=== PATIENT | male | born 1930 | race Caucasian/White ===

== ENCOUNTER → 2017-12-14 | Emergency (ER) | payer MEDICARE, OTHER ==
[~2017-12-14] VITALS: Ht 177.8 cm; Wt 88.0 kg
[~2017-12-14] MED LIST: ALBU8.5H8 INH; FLUT16SP26 BOTHNARES; GUAI600T45 PO; ISOS1POW MC; LISI10TA4 PO; NIT10P TD; XAL0.005OS OP; ZOC40T PO
[2017-12-14 08:43] LABS: BASOPHILS % (AUTO) 0.5 % (0-1); EOSINOPHILS # (AUTO) 0.2 X10'3 (0-0.9); EOSINOPHILS % (AUTO) 3.3 % (0-6); HEMATOCRIT 37.5 % (42.0-52.0); LYMPHOCYTES # (AUTO) 0.9 X10'3 (1.1-4.8); LYMPHOCYTES % (AUTO) 17.2 % (21-51); MEAN CORPUSCULAR HEMOGLOBIN 31.1 PG (27.0-31.0); MEAN CORPUSCULAR HGB CONC 34.7 % (33.0-36.5); MEAN CORPUSCULAR VOLUME 89.5 FL (78-98); MEAN PLATELET VOLUME 6.7 FL (7.4-10.4); MONOCYTES # (AUTO) 0.2 X10'3 (0-0.9); MONOCYTES % (AUTO) 4.8 % (2-12); NEUTROPHILS # (AUTO) 3.8 X10'3 (1.8-7.7); NEUTROPHILS % (AUTO) 74.2 % (42-75); PLATELET COUNT 132 X10'3 (140-440); RED BLOOD COUNT 4.19 X10'6 (4.70-6.10); RED CELL DISTRIBUTION WIDTH 14.6 % (11.5-14.5); WHITE BLOOD COUNT 5.1 X10'3 (4.5-11.0)
[2017-12-14 08:47] LABS: CLARITY,URINE CLEAR (Clear); COLOR,URINE DARK YELLOW (Yellow); GLUCOSE, URINE NEGATIVE (Neg); KETONES,URINE NEGATIVE (Neg); LEUKOCYTE ESTERASE ,URINE NEGATIVE (Neg); NITRITES, URINE NEGATIVE (Neg); OCCULT BLOOD,URINE NEGATIVE (Neg); PH,URINE 5.5 (4.8-8.0); PROTEIN,URINE NEGATIVE (Neg); UA COLLECTION TYPE CLN CATCH MIDSTREAM
[2017-12-14 08:52] LABS: PROTHROMBIN TIME 10.4 SECONDS (9.0-12.0)
[2017-12-14 08:58] LABS: ALANINE AMINOTRANSFERASE 21 U/L (12-78); ALBUMIN 3.4 G/DL (3.4-5.0); ALBUMIN/GLOBULIN RATIO 1.1 (1.1-1.5); ALKALINE PHOSPHATASE 89 IU/L (46-116); ANION GAP 5 (8-16); ASPARTATE AMINO TRANSFERASE 16 U/L (10-37); BILIRUBIN,TOTAL 0.9 MG/DL (0.1-1.0); BLOOD UREA NITROGEN 19 MG/DL (7-18); BUN/CREATININE RATIO 14.4 (5.4-32.0); CALCIUM 8.8 MG/DL (8.5-10.1); CHLORIDE 102 MMOL/L (99-107); CREATININE 1.32 MG/DL (0.60-1.10); GLUCOSE 230 MG/DL (70-104); LIPASE 69 U/L (73-393); POTASSIUM 4.3 MMOL/L (3.5-5.1); SODIUM 136 MMOL/L (135-145); TOTAL PROTEIN 6.4 G/DL (6.4-8.2); eGFR 52 ML/MIN
[2017-12-14 10:19] VITALS: BP 153/84
== END | disposition home or self-care (01) ==
LOC: ER 08:18
DX: R10.9 Unspecified abdominal pain (principal); E78.00 Pure hypercholesterolemia, unspecified; I10 Essential (primary) hypertension; E11.9 Type 2 diabetes mellitus without complications; G89.29 Other chronic pain; Z88.0 Allergy status to penicillin; Z79.899 Other long term (current) drug therapy
CPT/HCPCS: 36415; 80053; 81003; 83690; 85025; 85610; 99284

== ENCOUNTER 2020-03-28 10:02 | Observation (INO) | payer MEDICARE, OTHER ==
[~2020-03-28] VITALS: Ht 180.3 cm; Wt 85.0 kg
[~2020-03-28 10:02] MED LIST changes: -NIT10P TD; +NITR1PAT68 TD; +XAL0.005OS EACHEYE; -XAL0.005OS OP
--- NOTE | 2020-03-28 10:24 | NUR ---
Spoke with Dr José about pt symptoms, CP protocol ordered at this time.
[2020-03-28 10:53] LABS: BASOPHILS % (AUTO) 0.4 % (0-1); EOSINOPHILS # (AUTO) 0.2 X10'3 (0-0.9); EOSINOPHILS % (AUTO) 4.1 % (0-6); HEMATOCRIT 35.7 % (42.0-52.0); HEMOGLOBIN 11.9 g/dl (14.0-17.9); LYMPHOCYTES % (AUTO) 24.2 % (21-51); MEAN CORPUSCULAR HEMOGLOBIN 29.3 PG (27.0-31.0); MEAN CORPUSCULAR HGB CONC 33.3 g/dL (33.0-36.5); MEAN CORPUSCULAR VOLUME 88.1 FL (78-98); MEAN PLATELET VOLUME 6.8 FL (7.4-10.4); MONOCYTES # (AUTO) 0.4 X10'3 (0-0.9); MONOCYTES % (AUTO) 9.2 % (2-12); NEUTROPHILS # (AUTO) 2.6 X10'3 (1.8-7.7); NEUTROPHILS % (AUTO) 62.1 % (42-75); PLATELET COUNT 167 X10'3 (140-440); RED BLOOD COUNT 4.05 X10'6 (4.70-6.10); RED CELL DISTRIBUTION WIDTH 14.7 % (11.5-14.5); WHITE BLOOD COUNT 4.2 X10'3 (4.5-11.0)
[2020-03-28] MEDS ORDERED: aspirin 325mg tablet PO ONE (11:15)
[2020-03-28 11:46] LABS: ALANINE AMINOTRANSFERASE 22 U/L (12-78); ALBUMIN 3.5 G/DL (3.4-5.0); ALBUMIN/GLOBULIN RATIO 1.1 (1.1-1.5); ALKALINE PHOSPHATASE 78 IU/L (46-116); ANION GAP 10 (8-16); ASPARTATE AMINO TRANSFERASE 19 U/L (10-37); BILIRUBIN,TOTAL 0.5 MG/DL (0.1-1.0); BLOOD UREA NITROGEN 22 MG/DL (7-18); CALCIUM 9.1 MG/DL (8.5-10.1); CHLORIDE 103 MMOL/L (99-107); CREATININE 1.16 MG/DL (0.60-1.10); GLUCOSE 137 MG/DL (70-104); SODIUM 140 MMOL/L (135-145); TOTAL CARBON DIOXIDE 27.3 MMOL/L (24-32); TOTAL PROTEIN 6.8 G/DL (6.4-8.2); eGFR 59 ML/MIN
[2020-03-28] MEDS ORDERED: enoxaparin 100mg/ml syringe SUBCUT ONE (13:25)
[2020-03-28] MEDS ORDERED: ASPI-611 PO (13:33)
[2020-03-28] MEDS ORDERED: OMEG100037 PO (13:34)
[2020-03-28] MEDS ORDERED: MULT-1085 PO (13:35)
[2020-03-28] MEDS ORDERED: acetaminophen 325mg tablet PO PRN (13:45)
[2020-03-28] MEDS ORDERED: magnesium Cl slow-release 64mg tablet PO PRN (13:45)
[2020-03-28] MEDS ORDERED: magnesium 4gm in 100ml NS 100 ML IV PRN (13:45)
[2020-03-28] MEDS ORDERED: ondansetron/PF 4mg/2ml inj IV PRN (13:45)
[2020-03-28] MEDS ORDERED: potassium CL 10mEq/100ml bag 100 ML IV PRN ×2 (13:45)
[2020-03-28] MEDS ORDERED: normal saline 1000ml 1,000 ML IV SCH (13:45)
[2020-03-28] MEDS ORDERED: potassium Cl 20 mEq SR tablet PO PRN ×2 (13:45)
[2020-03-28] MEDS ORDERED: magnesium 2GM in 50ml NS 50 ML IV PRN (13:45)
[2020-03-28] MEDS ORDERED: TIMO5DRO36 EACHEYE (14:26)
[2020-03-28] MEDS ORDERED: METF-436 PO (14:27)
[2020-03-28] MEDS ORDERED: LISI-600 PO (14:28)
[2020-03-28] MEDS ORDERED: METO50TA17 PO (14:29)
--- NOTE | 2020-03-28 15:00 | NUR ---
Patient requesting meal tray. swine extension field specialist to cafeteria to retrieve tray for patient.
[2020-03-28] MEDS ORDERED: nitroGLYCERIN 0.4mg SUBLingual tab SL PRN (16:00)
[2020-03-28] MEDS ORDERED: metoprolol tartrate 1mg/ml inj IV PRN (16:00)
[2020-03-28] MEDS ORDERED: aminophylline 250mg/10ml inj. IV PRN (16:00)
--- NOTE | 2020-03-28 16:14 | NUR ---
Pt resting on gurney. Lights dimmed for comfort.
[2020-03-28 18:00] VITALS: BP 213/102
--- NOTE | 2020-03-28 18:26 | NUR ---
Problems reprioritized. Patient report given, questions answered & plan of care reviewed with Jorge RN and Dinorah SANABRIA.
[2020-03-28] MEDS: lisinopril 20mg tablet PO SCH (18:41)
[2020-03-28] MEDS: K and/or MAG REPLACEMENT MC SCH (20:00)
[2020-03-28] MEDS: OMEGA-3/DHA/EPA/FISH OIL 1 EACH CAPSULE.DR PO SCH (20:13)
[2020-03-28] MEDS: metoprolol tartrate 25mg tablet PO SCH (20:13)
[2020-03-28] MEDS: hydrALAZINE 20mg/ml inj. IV SCH (20:14)
[2020-03-28] MEDS ORDERED: latanoprost 0.005% 2.5ml ophthalmic drops EACHEYE SCH (21:00)
[2020-03-28 22:00] VITALS: BP 149/80
[2020-03-28] MEDS: morphine 2 MG/ML inj. syringe IV PRN (22:23)
[2020-03-29] VITALS (14 sets, daily range): BP systolic 149–201; BP diastolic 57–94
--- NOTE | 2020-03-29 00:19 | NUR ---
Patient in room PCU 3018. I have received report from Oksana SANABRIA and had the opportunity to ask questions and assume patient care.
[2020-03-29] MEDS: hydrALAZINE 20mg/ml inj. IV SCH ×2 (01:59→08:00)
[2020-03-29 05:48] LABS: BASOPHILS % (AUTO) 0.5 % (0-1); EOSINOPHILS # (AUTO) 0.1 X10'3 (0-0.9); EOSINOPHILS % (AUTO) 2.9 % (0-6); HEMATOCRIT 33.4 % (42.0-52.0); HEMOGLOBIN 11.4 g/dl (14.0-17.9); LYMPHOCYTES # (AUTO) 0.7 X10'3 (1.1-4.8); LYMPHOCYTES % (AUTO) 17.5 % (21-51); MEAN CORPUSCULAR HEMOGLOBIN 29.5 PG (27.0-31.0); MEAN CORPUSCULAR VOLUME 86.7 FL (78-98); MEAN PLATELET VOLUME 6.9 FL (7.4-10.4); MONOCYTES # (AUTO) 0.3 X10'3 (0-0.9); MONOCYTES % (AUTO) 7.5 % (2-12); NEUTROPHILS % (AUTO) 71.6 % (42-75); PLATELET COUNT 153 X10'3 (140-440); RED BLOOD COUNT 3.85 X10'6 (4.70-6.10); RED CELL DISTRIBUTION WIDTH 15.1 % (11.5-14.5); WHITE BLOOD COUNT 4.1 X10'3 (4.5-11.0)
[2020-03-29] MEDS: morphine 2 MG/ML inj. syringe IV PRN (05:48)
[2020-03-29 06:02] LABS: ALBUMIN 3.1 G/DL (3.4-5.0); ANION GAP 9 (8-16); BLOOD UREA NITROGEN 20 MG/DL (7-18); CALCIUM 9.9 MG/DL (8.5-10.1); CHLORIDE 104 MMOL/L (99-107); CHOL/HDL RATIO 5.1 (0.00-4.99); CHOLESTEROL 204 MG/DL (0-200); GLUCOSE 165 MG/DL (70-104); HDL CHOLESTEROL 40 MG/DL (35-60); LDL CHOLESTEROL 142 MG/DL (50-100); MAGNESIUM 1.7 MG/DL (1.5-2.4); POTASSIUM 3.8 MMOL/L (3.5-5.1); SODIUM 139 MMOL/L (135-145); TOTAL CARBON DIOXIDE 25.6 MMOL/L (24-32); TRIGLYCERIDES 107 MG/DL (20-135); eGFR 71 ML/MIN
--- NOTE | 2020-03-29 06:07 | NUR ---
Problems reprioritized. Patient report given, questions answered & plan of care reviewed with Zee RN.
--- NOTE | 2020-03-29 06:14 | NUR ---
I have reviewed Dinorah SANABRIA charting and I agree.
[2020-03-29] MEDS ORDERED: TIMOLOL MALEATE 0.25% ophth drops EACHEYE SCH (08:00)
[2020-03-29] MEDS: K and/or MAG REPLACEMENT MC SCH (08:00)
[2020-03-29] MEDS ORDERED: aspirin 81mg tablet.DR PO SCH (08:00)
[2020-03-29] MEDS ORDERED: multivitamins, therapeutics tablet PO SCH (08:00)
[2020-03-29] MEDS: regadenoson 0.4mg/5ml syringe IV PRN ×2 (10:17→10:28)
[2020-03-29] MEDS: OMEGA-3/DHA/EPA/FISH OIL 1 EACH CAPSULE.DR PO SCH (11:38)
[2020-03-29] MEDS: metoprolol tartrate 25mg tablet PO SCH (11:38)
[2020-03-29] MEDS: lisinopril 20mg tablet PO SCH (11:39)
--- NOTE | 2020-03-29 14:14 | NUR ---
Pt became confused after [place] scan, saw pt start to dress himself, take IV out, monitor off, and stated "I'm leaving this place, I don't like what they are doing here." The CN and I tried to convince the pt to stay and wait for results of [place] scan and to talk to . VENITA called security and the pt again did not want to stay. Dr Spaulding came and met the pt at the elevators and talked with the CN.
--- NOTE | 2020-03-29 14:32 | NUR ---
Security stated that family member named Flaquita that she would go to pt's house to make sure he got there. Security also stated that Dr Fine passed the pt in the lobby and the Dr stated to the pt "you shouldn't go, you should stay here" and the patient continued out the door. Dr German aware that the pt became confused after the [place] scan and didnt want to stay here at this hospital, pt left AMA.
--- NOTE | 2020-03-29 20:02 | NUR ---
PHONED [place] [employer] SPOKE WITH DISPATCH FOR FOLLOW UP ON PATIENT. POLICE DEPARTMENT STATED THEY DID WELLNESS CHECK ON PATIENT AT 1742, AND PATIENT WAS FINE AT HIS HOME. Addendum: 03/29/20 at 2009 by Natacha Santoro RN Amended: Links added.
== END 2020-03-29 13:15 | disposition still patient (30) ==
LOC: ER 10:03 → INTOOBSV 13:45 → ED HOLD 13:45 → PCU 3S 17:24 → MED 3N 03-29 08:40
PROVIDERS: ADMIT Internal Medicine; ATTEND Internal Medicine
DX: R07.89 Other chest pain (principal); I10 Essential (primary) hypertension; E78.5 Hyperlipidemia, unspecified; E11.9 Type 2 diabetes mellitus without complications; E78.00 Pure hypercholesterolemia, unspecified; Z79.82 Long term (current) use of aspirin; Z79.899 Other long term (current) drug therapy; Z88.0 Allergy status to penicillin
CPT/HCPCS: 36415; 71045; 78452; 80048; 80053; 80061; 82948; 83036; 83735; 83880; 84484; 85025; 93005; 93017; 93306; 93308; 96361; 96372; 96374; 96375; 96376; 99285; A9500; G0378; J0280; J0360; J2270; J2785; J7030; J1650

== ENCOUNTER 2020-05-21 14:14 | Emergency (ER) | payer MEDICARE, OTHER ==
[~2020-05-21] VITALS: Ht 177.8 cm; Wt 77.3 kg
[~2020-05-21 14:14] MED LIST changes: -ALBU8.5H8 INH; +ASPI-611 PO; -FLUT16SP26 BOTHNARES; -GUAI600T45 PO; -ISOS1POW MC; +LISI-600 PO; -LISI10TA4 PO; +METF-436 PO; +METO50TA17 PO; +MULT-1085 PO; -NITR1PAT68 TD; +OMEG100037 PO; +TIMO5DRO36 EACHEYE; -ZOC40T PO
[2020-05-21 16:39] VITALS: BP 178/93
== END 2020-05-21 16:57 | disposition home or self-care (01) ==
LOC: ER 14:14
DX: M25.561 Pain in right knee (principal); E78.00 Pure hypercholesterolemia, unspecified; I10 Essential (primary) hypertension; E11.9 Type 2 diabetes mellitus without complications; G89.29 Other chronic pain; Z98.890 Other specified postprocedural states; Z88.0 Allergy status to penicillin; Z79.82 Long term (current) use of aspirin; Z79.84 Long term (current) use of oral hypoglycemic drugs; Z79.899 Other long term (current) drug therapy
CPT/HCPCS: 29530; 73564; 99284

== ENCOUNTER 2020-10-10 14:34 | Emergency (ER) | payer MEDICARE ==
[~2020-10-10] VITALS: Ht 177.8 cm; Wt 81.8 kg
[~2020-10-10 14:34] MED LIST changes: +AMIO200T67 PO; +APIX2.5T PO; +ATOR20TA66 PO; -LISI-600 PO; +LISI20TA28 PO; -TIMO5DRO36 EACHEYE; +TIMO5SOL8 EACHEYE
[2020-10-10] MEDS ORDERED: acetaminophen 325mg tablet PO ONE (15:00)
[2020-10-10 15:05] LABS: BASOPHILS % (AUTO) 0.4 % (0-1); EOSINOPHILS # (AUTO) 0.1 X10'3 (0-0.9); EOSINOPHILS % (AUTO) 1.4 % (0-6); HEMATOCRIT 30.2 % (42.0-52.0); HEMOGLOBIN 10.2 g/dl (14.0-17.9); LYMPHOCYTES # (AUTO) 1.3 X10'3 (1.1-4.8); LYMPHOCYTES % (AUTO) 16.2 % (21-51); MEAN CORPUSCULAR HEMOGLOBIN 29.1 PG (27.0-31.0); MEAN CORPUSCULAR HGB CONC 33.7 g/dL (33.0-36.5); MEAN CORPUSCULAR VOLUME 86.4 FL (78-98); MEAN PLATELET VOLUME 6.5 FL (7.4-10.4); MONOCYTES # (AUTO) 0.6 X10'3 (0-0.9); MONOCYTES % (AUTO) 7.8 % (2-12); NEUTROPHILS # (AUTO) 5.9 X10'3 (1.8-7.7); NEUTROPHILS % (AUTO) 74.2 % (42-75); PLATELET COUNT 218 X10'3 (140-440); RED BLOOD COUNT 3.49 X10'6 (4.70-6.10); WHITE BLOOD COUNT 7.9 X10'3 (4.5-11.0)
[2020-10-10 15:19] LABS: ALANINE AMINOTRANSFERASE 30 U/L (12-78); ALBUMIN/GLOBULIN RATIO 1.1 (1.1-1.5); ALKALINE PHOSPHATASE 66 IU/L (46-116); ANION GAP 5 (8-16); ASPARTATE AMINO TRANSFERASE 21 U/L (10-37); BILIRUBIN,TOTAL 0.7 MG/DL (0.1-1.0); BLOOD UREA NITROGEN 16 MG/DL (7-18); BUN/CREATININE RATIO 13.1 (5.4-32.0); CALCIUM 8.2 MG/DL (8.5-10.1); CHLORIDE 99 MMOL/L (99-107); CREATININE 1.22 MG/DL (0.60-1.10); GLUCOSE 117 MG/DL (70-104); POTASSIUM 4.6 MMOL/L (3.5-5.1); SODIUM 134 MMOL/L (135-145); TOTAL CARBON DIOXIDE 29.9 MMOL/L (24-32); TOTAL PROTEIN 5.7 G/DL (6.4-8.2); eGFR 56 ML/MIN
[2020-10-10 15:24] LABS: TROPONIN I < 0.04 NG/ML (0.0-0.05)
[2020-10-10 15:33] LABS: ACANTHOCYTES 1+; ANISOCYTOSIS 2+; ELLIPTOCYTES 1+; PLATELET ESTIMATE NORMAL
[2020-10-10 15:34] LABS: SCHISTOCYTES 1+; TEAR DROP CELLS 1+
--- NOTE | 2020-10-10 17:13 | NUR ---
talked with pt about making sure he has someone with him while he is walking until he is healed. pt uses a walker at home all the time. talked with nurse Rusty and informed him that the pt's son is here to take him to the patient's home. Rusty went out with the pt to talk to the son about the psychiatric social worker supervisor consult and discuss this part of the pt's care with him. pt's right knee is more swollen than his left. wound on left elbow has a bandage on it with blood on it but it is not actively bleeding. pt able to get up to wheelchair with very minimal assistance. right leg is harder to move.
[2020-10-10 17:16] VITALS: BP 199/95
== END 2020-10-10 17:16 | disposition home or self-care (01) ==
LOC: ER 14:35
DX: S51.012A Laceration without foreign body of left elbow, initial encounter (principal); S00.01XA Abrasion of scalp, initial encounter; I48.91 Unspecified atrial fibrillation; I50.9 Heart failure, unspecified; E78.00 Pure hypercholesterolemia, unspecified; I11.0 Hypertensive heart disease with heart failure; E11.9 Type 2 diabetes mellitus without complications; G89.29 Other chronic pain; Z96.653 Presence of artificial knee joint, bilateral; Z88.1 Allergy status to other antibiotic agents; Z79.82 Long term (current) use of aspirin; Z79.899 Other long term (current) drug therapy; W22.09XA Striking against other stationary object, initial encounter; Y93.01 Activity, walking, marching and hiking; Y92.89 Other specified places as the place of occurrence of the external cause; Y99.8 Other external cause status
CPT/HCPCS: 36415; 70450; 72125; 73560; 80053; 84145; 84484; 85008; 85025; 99285

== ENCOUNTER 2021-01-24 08:54 | Outpatient (CLI) | payer MEDICARE ==
[~2021-01-24] VITALS: Ht 177.8 cm; Wt 26.8 kg
[~2021-01-24 08:54] MED LIST changes: +AMIO200T62 PO; -AMIO200T67 PO; -APIX2.5T PO; -ATOR20TA66 PO; +ATOR40TA PO; -OMEG100037 PO
[2021-01-24] MEDS ORDERED: regadenoson 0.4mg/5ml syringe IV ONE (09:40)
[2021-01-24] MEDS ORDERED: metoprolol tartrate 1mg/ml inj IV PRN (10:05)
[2021-01-24] MEDS ORDERED: nitroGLYCERIN 0.4mg SUBLingual tab SL PRN (10:05)
[2021-01-24] MEDS ORDERED: aminophylline 250mg/10ml inj. IV PRN (10:05)
[2021-01-24 10:30] VITALS: BP 172/74
[2021-01-24 10:44] VITALS: BP 161/56
[2021-01-24 10:45] VITALS: BP 148/54
[2021-01-24 10:46] VITALS: BP 143/57
[2021-01-24 10:47] VITALS: BP 144/52
[2021-01-24 10:48] VITALS: BP 146/52
== END 2021-01-24 23:59 | disposition home or self-care (01) ==
LOC: RAD 08:54
PROVIDERS: ATTEND Internal Medicine Cardiovascular Disease
DX: R07.9 Chest pain, unspecified (principal)
CPT/HCPCS: 78452; 93017; A9500; J0280; J2785

== ENCOUNTER 2021-10-09 22:26 | Inpatient (IN) | payer MEDICARE ==
[~2021-10-09] VITALS: Ht 177.8 cm; Wt 84.5 kg
[~2021-10-09 22:26] MED LIST changes: +AMLO5TAB PO; +APIX2.5T PO; -TIMO5SOL8 EACHEYE
[2021-10-09] MEDS ORDERED: nitroGLYCERIN 1gm ointment UD TP ONE (22:30)
--- NOTE | 2021-10-09 22:44 | NUR ---
LET DR LUO IS AWARE OF PT'S BP
[2021-10-09] MEDS ORDERED: normal saline 1000ML IV soln IVB ONE (22:45)
[2021-10-09 22:51] LABS: BASOPHILS % (AUTO) 0 % (0-1); EOSINOPHILS % (AUTO) 0.1 % (0-6); HEMATOCRIT 26.3 % (42.0-52.0); HEMOGLOBIN 8.7 g/dl (14.0-17.9); LYMPHOCYTES # (AUTO) 0.4 X10'3 (1.1-4.8); LYMPHOCYTES % (AUTO) 2.4 % (21-51); MEAN CORPUSCULAR VOLUME 90.8 FL (78-98); MEAN PLATELET VOLUME 7.9 FL (7.4-10.4); NEUTROPHILS # (AUTO) 15.5 X10'3 (1.8-7.7); NEUTROPHILS % (AUTO) 91.5 % (42-75); PLATELET COUNT 143 X10'3 (140-440); RED CELL DISTRIBUTION WIDTH 19.7 % (11.5-14.5)
--- NOTE | 2021-10-09 22:51 | NUR ---
HOLDING NTG PATCH FOR NOW PER VO OF DR LUO, D/T BP.
[2021-10-09 22:52] LABS: ABG BASE EXCESS -1.7 mmol/L (-2.0-2.0); ABG HCO3 24.9 mmol/L (22.0-26.0); ABG OXYGEN SATURATION 94.7 % (94-97); ABG PCO2 (T) 51.8 mmHg (35.0-48.0); ABG PO2 (T) 83.6 mmHg (75.0-100.0); FCOHb 0.3 % (0.0-3.9); FMetHb 0.3 % (0.0-1.5); FO2Hb 94.1 % (94-97); PATIENT TEMPERATURE 37.3; TOTAL HEMOGLOBIN 9.7 G/dl (14.0-18.0)
[2021-10-09 23:04] LABS: ALANINE AMINOTRANSFERASE 62 U/L (12-78); ALBUMIN 1.9 G/DL (3.4-5.0); ALBUMIN/GLOBULIN RATIO 0.8 (1.1-1.5); ALKALINE PHOSPHATASE 48 IU/L (46-116); ANION GAP 5 (8-16); ASPARTATE AMINO TRANSFERASE 17 U/L (10-37); BILIRUBIN,TOTAL 0.4 MG/DL (0.1-1.0); BLOOD UREA NITROGEN 59 MG/DL (7-18); BUN/CREATININE RATIO 46.8 (5.4-32.0); CALCIUM 7.4 MG/DL (8.5-10.1); CHLORIDE 97 MMOL/L (99-107); CREATININE 1.26 MG/DL (0.60-1.10); GLUCOSE 171 MG/DL (70-104); POTASSIUM 5.4 MMOL/L (3.5-5.1); SODIUM 127 MMOL/L (135-145); TOTAL CARBON DIOXIDE 24.7 MMOL/L (24-32); TOTAL PROTEIN 4.3 G/DL (6.4-8.2); eGFR 54 ML/MIN
--- NOTE | 2021-10-09 23:05 | NUR ---
RT IN ROOM PLACED PT ON BIPAP
[2021-10-09] MEDS ORDERED: DOBUTamine-DoBUTrex 500mg/D5W 250 ML IV SCH (23:10)
[2021-10-09] MEDS ORDERED: cefTRIAXone 1g/NS 100ml IVPB 100 ML IV ONE (23:10)
[2021-10-09] MEDS ORDERED: azithromycin/NS 500mg/250ml 250 ML IV ONE (23:10)
--- NOTE | 2021-10-09 23:10 | NUR ---
BP STILL LOW. SPOKE TO DR LUO. GIVEN VO TO GIVE ANOTHER 25O CC NS BOLUS AND START A DOBUTAMINE DRIP.
[2021-10-09 23:19] LABS: PLATELET ESTIMATE NORMAL
[2021-10-09 23:20] LABS: ANISOCYTOSIS 2+; SCHISTOCYTES 2+
[2021-10-09] MEDS ORDERED: vancomycin inj 1,000 MG in normal saline 250ml IV soln 250 ML IV ONE (23:20)
--- NOTE | 2021-10-09 23:20 | NUR ---
DR LUO IN ROOM CONSIDERING CENTRAL LINE. CENTRAL LINE MATERIALS READY TO GO.
--- NOTE | 2021-10-09 23:30 | NUR ---
DR LUO IN ROOM STARTING CENTRAL LINE.
[2021-10-10] MEDS ORDERED: NORepinephrine inj. 8 MG in dextrose 5%-water 242 ML IV SCH (00:10)
--- NOTE | 2021-10-10 00:10 | NUR ---
CALLED DR MORGAN, NUCLEAR PLANT OPERATOR CONCERNING BEING MAXED OUT ON DOBUTAMINE YET NOT SEEING ANY IMPROVEMENT ON BP. HE WILL PUT IN NEW ORDERS.
--- NOTE | 2021-10-10 00:18 | NUR ---
PHARMACY IS GETTING LEVOPHED READY
--- NOTE | 2021-10-10 00:32 | NUR ---
PHARMACY CALLED. THEY ARE STILL WORKING ON PREPARING LEVOPHED.
[2021-10-10] MEDS ORDERED: NORepinephrine 8mg/ 250ml NS 250 ML IV ONE (00:33)
[2021-10-10] MEDS: NORepinephrine 8mg/ 250ml NS 250 ML IV SCH ×2 (00:39→04:52)
[2021-10-10] MEDS ORDERED: normal saline 1000ml 1,000 ML IV ONE (01:45)
--- NOTE | 2021-10-10 03:20 | NUR ---
RN Note -admission Pt arrived from ED on gurney, vomiting. Saturation 98% on nonrebreather. Will administer antiemetic before placing pt on BiPAP. Pt confused at times, pulling off oxygen mask, but responds to reorienting. Pt had large loose black stool.
[2021-10-10 03:30] VITALS: BP 120/42
[2021-10-10] MEDS ORDERED: ondansetron/PF 4mg/2ml inj IV PRN (03:50)
[2021-10-10 04:00] VITALS: BP 108/44
[2021-10-10 04:30] VITALS: BP 58/28
--- NOTE | 2021-10-10 04:30 | NUR ---
Pt HR 30' Addendum: 10/10/21 at 0556 by Sunshine Lazaro RN Pt's HR 30's, BP 58/38, vomited again. Pt's son called and is en route.
[2021-10-10 05:00] VITALS: BP 140/47
[2021-10-10] MEDS ORDERED: LORazepam 2 mg/ml vial IV PRN (05:20)
[2021-10-10] MEDS ORDERED: morphine 4 MG/ML inj SYRINge IV PRN (05:20)
--- NOTE | 2021-10-10 05:20 | NUR ---
Code Status Change Pt's son, Hiren, at bedside. Decision to transition pt to comfort care.
[2021-10-10] MEDS ORDERED: morphine 4 MG/ML inj SYRINge ONE (05:22)
[2021-10-10 06:00] VITALS: BP 64/32
[2021-10-10] MEDS ORDERED: BENZ-38 PO (06:59)
[2021-10-10 07:00] VITALS: BP 78/36
--- NOTE | 2021-10-10 09:14 | NUR ---
Malnutrition consult: Pt unsure of wt loss though with decreased appetite per malnutrition risk screen with RN. Unable to obtain information from pt as pt A/O x 1 and confused with dementia per EMR. Current scaled weight is higher than reported and scaled wt hx in EMR since 2020 and is appropriate for age. Pt NPO at this time. No documented significant decrease in muscle strength or edema. Pt currently lacks a minimum of two criteria for malnutrition. Noted pt with a low Bryan of 12, skin intact other than an abrasion to buttock per EMR. LBM 10/10. Pt DNR with comfort care. Will continue to follow per LOS. Recommendations: 1) Bowel care per comfort care measures Addendum: 10/10/21 at [address] Amended: Links added.
--- NOTE | 2021-10-10 09:59 | NUR ---
0600- assumed care of patient, son at bedside. Patient will open eyes but not following direction. Explained POC to son and how to reach me with any concerns. 0740- Son called, increased WOB. medicated with morphine and ativan. 0748- patient asystole, son at bedside. no personal belongings to take home. 0940- Donor network called reference # [id number], not eligible for donation.
--- NOTE | 2021-10-10 10:04 | NUR ---
RN IS TO DOCUMENT YES TO ALL APPLICABLE AREAS Pronouncement of :Yara Avitia RN 1. Time Physician Notified:[id number] 2. Date of :10/10/2021 3. Time of : 747 4. DNR/Withdraw life support documented:y 5. Monitor strip has been placed on chart:y 6. Assessment process is of one-minute duration and includes following criteria: a) Patient is unresponsive to all stimuli: y b) Pupils fixed and non-reactive:y c) Auscultation of precordium reveals absence of heart tones:y d) Auscultation of lungs reveals absence of breath sounds:y e) Absence of blood pressure / all vital signs:y f) QRS complexes are not present on monitor / EKG strip:y g) Pacer spikes without capture:NA 4. Comments:Son at bedside. notified. No belongings.
== END 2021-10-10 12:24 | DRG 871 ==
LOC: ER 22:27 → ED HOLD 10-10 00:06 → CICU 2S 10-10 03:45
PROVIDERS: ADMIT Internal Medicine; ATTEND Internal Medicine
PROC: 5A09357 Assistance with Respiratory Ventilation, Less than 24 Consecutive Hours, Continuous Positive Airway Pressure (ICD-10-PCS; principal; 2021-10-09)
PROC: 05HY33Z Insertion of Infusion Device into Upper Vein, Percutaneous Approach (ICD-10-PCS; 2021-10-09)
DX: A41.9 Sepsis, unspecified organism (principal); U07.1 COVID-19; I50.43 Acute on chronic combined systolic (congestive) and diastolic (congestive) heart failure; J96.01 Acute respiratory failure with hypoxia; R65.21 Severe sepsis with septic shock; J12.82 Pneumonia due to coronavirus disease 2019; J15.9 Unspecified bacterial pneumonia; G93.41 Metabolic encephalopathy; Z66 Do not resuscitate; E11.9 Type 2 diabetes mellitus without complications; E78.00 Pure hypercholesterolemia, unspecified; R57.0 Cardiogenic shock; F03.90 Unspecified dementia, unspecified severity, without behavioral disturbance, psychotic disturbance, mood disturbance, and anxiety; I11.0 Hypertensive heart disease with heart failure; I48.91 Unspecified atrial fibrillation; G89.29 Other chronic pain; M54.9 Dorsalgia, unspecified; I95.9 Hypotension, unspecified; Z86.16 Personal history of COVID-19; Z88.8 Allergy status to other drugs, medicaments and biological substances; Z79.899 Other long term (current) drug therapy
CPT/HCPCS: 36415; 36600; 71045; 80053; 82803; 82948; 83605; 83880; 84145; 84484; 85008; 85018; 85025; 85610; 87040; 87081; 87635; 94660; 94760; 96374; 96375; 99285; A4615; C1758; G0378; J0456; J0696; J1250; J2270; J2405; J3370; J3490; J7030; J7050